=== PATIENT | male | born 1990 | race Caucasian/White ===

== ENCOUNTER 2017-07-13 20:20 | Emergency (ER) | payer OTHER, MEDICAID ==
[~2017-07-13] VITALS: Ht 167.6 cm; Wt 86.7 kg
[2017-07-13 20:41] VITALS: BP 153/98; Ht 167.6 cm; Wt 86.7 kg
== END 2017-07-13 21:08 | disposition home or self-care (01) ==
LOC: ED 20:20
DX: K08.89 Other specified disorders of teeth and supporting structures (principal)